=== PATIENT | female | born 1965 | race Caucasian/White ===

== ENCOUNTER → 2021-01-26 13:47 | Outpatient (CLI) | payer BC, SELFPAY ==
--- NOTE | ~2021-01-26 | MM_ITS ---
EXAMINATION: MM screening christi BI w chavez HISTORY: Screening mammogram TECHNIQUE: Craniocaudal and mediolateral oblique 3-D tomosynthesis images were obtained and synthetic 2-D images were generated. CAD analysis was submitted and interpreted. COMPARISON: 11/06/2019, 09/29/2018, 09/23/2017 bilateral digital screening mammogram examinations BREAST PARENCHYMAL COMPOSITION: There are scattered areas of fibroglandular density. FINDINGS: Stable small circumscribed benign-appearing intramammary lymph nodes are noted bilaterally. There is no evidence of suspicious mass, calcification, or architectural distortion to suggest malig estevan in either breast. There has been no suspicious interval change. IMPRESSION: 1. No mammographic evidence of malignancy. 2. Recommend routine screening mammography in one year. BI-RADS Category 2: Benign finding(s). Reviewed, dictated and finalized at location A. D ASSOCIATE
== END ==
PROVIDERS: Visit Provider Nurse Practitioner Obstetrics & Gynecology
DX: Z12.31 Encounter for screening mammogram for malignant neoplasm of breast (principal)
CPT/HCPCS: 77063; 77067

== ENCOUNTER → 2022-02-23 12:10 | Outpatient (CLI) | payer BC, SELFPAY ==
--- NOTE | ~2022-02-23 | MM_ITS ---
EXAMINATION: MM screening christi BI w chavez HISTORY: Screening TECHNIQUE: Craniocaudal and mediolateral oblique 3-D tomosynthesis images were obtained and synthetic 2-D images were generated. CAD analysis was submitted and interpreted. COMPARISON: Comparison to multiple prior studies sequentially, with oldest reviewed study dated 11/2015. BREAST PARENCHYMAL COMPOSITION: There are scattered areas of fibroglandular density. FINDINGS: There is no evidence of suspicious mass, calcification, or architectural distortion to sugg est malignancy in either breast. There has been no suspicious interval change. IMPRESSION: 1. No mammographic evidence of malignancy. 2. Recommend routine screening mammography in one year. BI-RADS Category 1: Negative Reviewed, dictated and finalized at location A.
== END ==
PROVIDERS: PCP Internal Medicine; Visit Provider Nurse Practitioner Obstetrics & Gynecology
DX: Z12.31 Encounter for screening mammogram for malignant neoplasm of breast (principal)
CPT/HCPCS: 77063; 77067

== ENCOUNTER → 2022-09-24 08:19 | Outpatient (CLI) | payer BC, SELFPAY ==
--- NOTE | ~2022-09-24 | DEXA_ITS ---
Bone Density Report Name: NASRA JAMA Age: 57 Sex: Female Ethnicity: White Date of : 1965 Indication: postmenopausal; screening for osteoporosis; Referring Provider: Yoanna, Christiano Study: Bone densitometry was performed. Exam Date: September 24, 2022 Accession number: [id number] Bone Density: Region BMD T-score Z-score Classification AP Spine (L1-L4) 0.991 -0.5 0.8 Normal Femoral Neck (Left) 0.859 0.1 1.3 Normal Total Hip (Left) 0.996 0.4 1.3 Normal Femoral Neck (Right) 0.712 -1.2 0.0 Osteopenia Total Hip (Right) 0.985 0.4 1.2 Normal Total Hip Mean 0.991 0.4 1.3 Normal World Health Organization criteria for BMD impression classify patients as: Normal (T-score at or above -1.0), Osteopenia (T-score between -1.0 and -2.5), or Osteoporosis (T-score at or below -2.5). 10-year Fracture Risk(1): Major Osteoporotic Fracture 6.8% Hip Fracture 0.4% Reported Risk Factors: [place] (), Neck BMD=0.712, BMI=28.9 (1) FRAX(R) Version 3.08. Fracture probability calculated for an untreated patient. Fracture probability may be lower if the patient has received treatment. Clinical Information Provided by Patient: Patient maximum height was 65.5 Menopause Age: 52 No regular weight bearing exercise Does not regularly consume dairy products Drinks caffeinated beverages Onset of menses at age 11 Number of children 2 Impression: The patient has low bone mass, based on the Right Femoral Neck T-score. The patient has an estimated ten-year risk of hip fracture of 0.4% and an estimated ten-year risk of major fracture of 6.8%, based on the WHO FRAX algorithm. Discussion: BONE DENSITY IS LOW AT ONE OR MORE SKELETAL SITES. This patient's lowest T-score is low at one or more skeletal sites. It meets the World Health Organization's (WHO) criteria for ?low bone mass? (T-score between -1.0 and -2.5). The patient's 10-year risk of fracture as calculated by FRAX is less than the threshold where pharmacological therapy is recommended by the National Osteoporosis Foundation (NOF). However, all treatment decisions require clinical judgment and consideration of individual patient factors, including patient preferences, comorbidities, previous drug use, risk factors not captured in the FRAX model (e.g., frailty, falls, vitamin D deficiency, increased bone turnover, interval significant decline in bone density) and possible under or overestimation of fracture risk by FRAX. The patient should follow a healthful lifestyle (good nutrition with adequate calcium and vitamin D, and appropriate weight-bearing exercise). Follow-Up: Consider repeating this study in 2 to 3 years to reassess this patient's status, or sooner if there is some new clinical indication. Reported by: JAKOB on 09/24/2022 8:46:00 AM.
== END ==
PROVIDERS: PCP Internal Medicine; Visit Provider Internal Medicine
DX: Z13.820 Encounter for screening for osteoporosis (principal); Z78.0 Asymptomatic menopausal state; M85.851 Other specified disorders of bone density and structure, right thigh
CPT/HCPCS: 77080

== ENCOUNTER → 2023-05-13 09:57 | Outpatient (CLI) | payer BC, SELFPAY ==
--- NOTE | ~2023-05-13 | MM_ITS ---
EXAMINATION: MM screening christi BI w chavez HISTORY: Screening mammogram TECHNIQUE: Craniocaudal and mediolateral oblique 3-D tomosynthesis images were obtained and synthetic 2-D images were generated. CAD analysis was submitted and interpreted. COMPARISON: February 23, 2022, January 26, 2021, November 06, 2019 bilateral screening mammogram examination s BREAST PARENCHYMAL COMPOSITION: There are scattered areas of fibroglandular density. FINDINGS: There is no evidence of suspicious mass, calcification, or architectural distortion to sugg est malignancy in either breast. There has been no suspicious interval change. IMPRESSION: 1. No mammographic evidence of malignancy. 2. Recommend routine screening mammography in one year. BI-RADS Category 1: Negative Reviewed, dictated and finalized at location A.
== END ==
PROVIDERS: PCP Nurse Practitioner Obstetrics & Gynecology; Visit Provider Internal Medicine
DX: Z12.31 Encounter for screening mammogram for malignant neoplasm of breast (principal)
CPT/HCPCS: 77063; 77067

== ENCOUNTER 2024-06-28 10:32 | Outpatient (CLI) | payer BC, SELFPAY ==
--- NOTE | ~2024-06-28 | MM_ITS ---
EXAMINATION: MM screening christi BI w chavez HISTORY: Screening TECHNIQUE: Craniocaudal and mediolateral oblique 3-D tomosynthesis images were obtained and synthetic 2-D images were generated. CAD analysis was submitted and interpreted. COMPARISON: Comparison to multiple prior studies sequentially, with oldest reviewed study dated 07/2018. BREAST PARENCHYMAL COMPOSITION: Not dense: There are scattered areas of fibroglandular density. FINDINGS: There is no evidence of suspicious mass, calcification, or architectural distortion to sugg est malignancy in either breast. There has been no suspicious interval change. IMPRESSION: 1. No mammographic evidence of malignancy. 2. Recommend routine screening mammography in one year. BI-RADS Category 1: Negative Reviewed, dictated and finalized at location B.
== END 2024-06-28 10:33 ==
PROVIDERS: PCP Internal Medicine; Visit Provider Internal Medicine
DX: Z12.31 Encounter for screening mammogram for malignant neoplasm of breast (principal)
CPT/HCPCS: 77063; 77067

== ENCOUNTER 2025-01-14 02:52 | Day surgery (SDC) | payer BC, SELFPAY ==
[2024-12-31 13:33] VITALS: BMI 27.5
--- OUTSIDE RECORDS SUMMARY | 2025-01-14 02:56 | XMS_ITS | Data Portability ---
Author Organization [facility] [place] Address [address] [place] [address] Care Team Providers Care Improvement Spec Name Role Phone MELINDA KUPop Primary Care Provider [phone] Assessment Encounter Date Assessment Date Assessment LastModified by Organization Details LastModified Time 01/01/2021 01/01/2021 Annual gynecological exam performed. Patient will come back in a year unless there are new symptoms. [email or web address] Not available 12/31/2020 14:52:50 07/08/2023 07/08/2023 Annual gynecological exam performed. Patient will come back in a year unless there are new symptoms. Not available 07/08/2023 12:11:52 10/22/2024 10/22/2024 Annual gynecological exam performed. Patient will come back in a year unless there are new symptoms. [email or web address] Not available 10/22/2024 09:03:50 Plan of Treatment Reminders Order Date Submit Date Provider Last Modified By Organization Details Last Modified Time Details Appointments None record ed. Lab None record ed. Referral None record ed. Procedures None record ed. Surgeries None record ed. Imaging None record ed. Medication Orders None record ed. Patient TargetsNo targets recorded. Patient InstructionsNo instructions recorded. Reason for Referral None Reported. Results Created Date Observation Date Name Description Value Unit Range Abnormal Flag Note LastModifiedBy Organization Detail LastModifiedTime 07/08/2007/08/2023 IMAGE GUIDE D PAP AND HPV REGAR DLESS image guided Pap, HPV regardless of Pap result SEE RESULT S BELOW CASE REPOR T: Cytol ogy Gynec ologi gwendolyn Repor t Case: [id number] Autho virgie monique Provi marleny: Rosie hilton , Jakub Neal Quach cted: 07/08 1349 CONCIERGE Order ing Locat ion: [place] Patho loghelen Recei blaise: 07/09 0319 First Scree n: Crystal Vides Speci men: Scree angélica Pap - Image d, Cervi x STATE MENT OF ADEQU ACY: Satis facto ry for evalu ation Trans forma tion zone compo nent prese nt FINAL DIAGN OSIS: Negat roddy for Intra epith elial Oksana begum or Rui barreto (NIL) . Elect yennyketty figueroa lluvia d by Crystal Vides ica on 2022 at 12:36 PM ----- ----- ----- ----- ----- ----- ----- ----- ----- ----- ----- ----- ----- ----- ----- ----- ----- ---- HPV RESUL TS: HPV mRNA E6/E7 : No HPV mRNA Detec allyssa NOTE: This high risk HPV mRNA assay detec ts fourt een high- risk HPV types (16, 18, 31, 33, 35, 39, 45, 51, 52, 56, 58, 59, 66, 68) witho ut diffe renti ation . COMME NT: This speci men was revie wed by a Cytot echno logis t and/o r Patho logis t (as indic ated in this repor t) after evalu ation using the Thinp rep Imagi ng Syste m. CLINI GWENDOLYN INFOR MATIO N: Menst rual Statu s: LMP (if appli cable ): Clini gwendolyn Histo ry/Pr eviou s Pap: Type of Neopl braeden (if appli cable ): Signi fican t Clini gwendolyn Findi ngs: Other Histo ry: Hormo brielle (if appli cable ): PAP EDUCA MILADYS L NOTE: The Pap Test is a scree angélica test with an inher ent false negat roddy rate. Liqui d-bas ed sampl ing may decre ase, but will not elimi jose enrique, false negat roddy resul ts. A negat roddy resul t does not precl ude the prese nce and/o r devel opmen t of disea se, since the prese nce of abnor mal cells in the sampl e depen ds on the locat ion of the lesio n and sampl ing techn ique. Ayan nued regul ar scree angélica is the best metho d of cance r preve ntion . If repor allyssa cytol ogic findi ng do not corre late with physi gwendolyn and/o r histo rical findi ngs, furth er inves tigat ion is recom viki d, as clini kourtney gomez nted. Not Available [facility] (Lab) [address], [place], [address], 07/11/2023 13:39:24 01/27/20 21 01/26/2021 MAMMO , scree angélica, bilat eral No observ ation record ed. layran [facility] [address], [place], [address], 02/17/2021 18:03:15 02/24/20 22 02/23/2022 MAMMO , scree angélica, bilat eral No observ ation record ed. [email or web address] [facility] [address], [place], [address], 05/19/2023 14:05:13 Result Notes None recorded. 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) (routine) w/o abn findings;P ractice ID: 0001 Not Available [facility] 0 18:55:40 Screening for malignant neoplasm of rectum Active 2017 Encounter for screening for malignant neoplasm of rectum;Pra ctice ID: 0001 Not Available [facility] 0 18:55:40 Removal of intrauter ine device Active 2018 Encounter for removal of intrauteri ne contracept roddy device;Pra ctice ID: 0001 Not Available [facility] 0 18:55:40 Specializ ed medical examinati on Active 2014 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;Randall rded Elsewhere: No Locatio n: [facility] rce: EHR Chroni c: N Practice ID: 0001 Billa ble Time: 08:30:00 AM Not Available [facility] 0 18:55:40 Urinary tract infectiou s disease 94321488 Active 2015 Urinary tract infection, site not specified; Practice ID: 0001 Not Available [facility] 0 18:55:[address] Concept Active 2017 Encntr for general adult medical exam w/o abnormal findings;P ractice ID: 0001 Not Available [facility] 0 18:55:40 Evaluatio n finding Active 2016 Hematuria, unspecifie d;Recorded Elsewhere: No Locatio n: [facility] rce: EHR Chroni c: N Practice ID: 0001 Billa ble Time: 09:00:00 AM Not Available [facility] 0 18:55:40 Adult health examinati on Active 2014 ROUTINE MEDICAL EXAM;Recor ded Elsewhere: No Locatio n: [facility] rce: EHR Chroni c: N Practice ID: 0001 Billa ble Time: 08:30:00 AM Not Available [facility] 0 18:55:40 Insertion of intrauter ine contracep tive device Active 2013 INSERTION OF IUD;Record ed Elsewhere: No Locatio n: [facility] rce: EHR Chroni c: N Practice ID: 0001 Billa ble Time: 08:30:00 AM Not Available [facility] 0 18:55:40 Screening for malignant neoplasm of cervix Active 2012 Screening for malignant neoplasms of the cervix;Rec orded Elsewhere: No Locatio n: [facility] rce: EHR Chroni c: N Practice ID: 0001 Billa ble Time: 08:15:00 AM Not Available [facility] 0 18:55:40 Joint pain 38134113 Active 2014 Arthralgia ;Recorded Elsewhere: No Locatio n: [facility] rce: EHR Chroni c: N Practice ID: 0001 Billa ble Time: 08:30:00 AM Not Available [facility] 0 18:55:40 Radiologi c finding 389068293 Active 2016 Oth abn and inconclusi ve findings on dx imaging of breast;Rec orded Elsewhere: No Locatio n: [facility] rce: EHR Chroni c: N Practice ID: 0001 Billa ble Time: 01:00:19 PM Not Available [facility] 0 18:55:41 Blood leukocyte number above reference range 344425398 Active 2015 Elevated white blood cell count, unspecifie d;Practice ID: 0001 Not Available [facility] 0 18:55:[address] Concept Active 2016 Encounter for general adult medical exam w abnormal findings;P ractice ID: 0001 Not Available [facility] 0 18:55:41 Family planning surveilla nce Active 2013 Contracept roddy surveillan ce, unspecifie d;Recorded Elsewhere: No Locatio n: [facility] rce: EHR Chroni c: N Practice ID: 0001 Billa ble Time: 08:30:00 AM Not Available [facility] 0 18:55:42 test negative 911907966 Active 2013 examinatio n or test, negative result;Rec orded Elsewhere: No Locatio n: [facility] rce: EHR Chroni c: N Practice ID: 0001 Billa ble Time: 08:30:00 AM Not Available [facility] 0 18:55:42 Elevated blood-pre ssure reading without diagnosis of hypertens ion 727184762 Active 2011 Elevated blood pressure reading without diagnosis of hypertensi on;Recorde d Elsewhere: No Locatio n: [facility] rce: EHR Chroni c: N Practice ID: 0001 Billa ble Time: 08:30:00 AM Not Available [facility] 0 18:55:42 Screening for malignant neoplasm of colon Active 2010 Special screening for malignant neoplasms, colon;Prac renetta ID: 0001 Not Available [facility] 0 18:55:43 Vitamin D deficienc y 71099534 Active 2022 [facility] 4 10:21:18 Hyperlipi demia 34472153 Active 2022 [facility] 4 10:21:19 Hyperglyc emia 40960780 Active 2022 [facility] 4 10:21:19 Problem Notes None recorded. Procedures Surgical History Date Name Laterality Status Provider Name and Address Organization Details Recorded Time 4 Date of Last Mammogram completed [facility] 10/22/2024 09:07:22 3 Date of Last Pap Smear completed [facility] 08/28/2024 16:38:23 Imaging Results Imaging Date Name Status LastModified by Organiz ation Details LastModified Time 01/26/2021 MAMMO, screening, bilateral completed [facility] [address], [place], [address], 02/17/2021 18:03:15 02/23/2022 MAMMO, screening, bilateral completed [address] [facility] [address], [place], [address], 05/19/2023 14:05:13 Procedure Notes None recorded. Medical Equipment None Reported. Allergies No known drug allergies Medications Name Sig Start Date Stop Date Status Note LastModified by Organization Details LastModified Time Mirena 21 mcg/24 hr (up to 8 years) 52 mg intrauter ine device insert 08/30 completed Prescrib ed Elsewher e: No Locat ion: [facility] odify By: travis luu DateTime : 02/26/20 04:31:53 PM Not Available Not Available Not Available aspirin 81 mg tablet,de layed release Take 1 tablet every day by oral route. active Not Available Not Available No t Available amoxicill in 500 mg tablet take 1 tablet by oral route 3 times every day for 10 days 06/08 completed Prescrib ed Elsewher e: No Locat ion: [facility] odify By: tong sood DateTime : 05/30/20 04:34:02 PM Not Available Not Available Not Available Cipro 500 mg tablet take 1 tablet by oral route every 12 hours 05/25 completed Prescrib ed Elsewher e: No Locat ion: [facility] odify By: davion gradyuntrosana DateTime : 10/08/20 16 09:00:00 AM Not Available Not Available Not Available Inspireas e Bags device 05/07 completed Prescrib ed Elsewher e: Yes Loca tion: [facility] odify By: [email or web address] Encount er DateTime : 04/11/20 12 08:30:00 AM Not Available Not Available Not Available Vitamin D2 1,250 mcg (50,000 unit) capsule take 1 capsule by oral route every week 01/01 completed Prescrib ed Elsewher e: No Locat ion: [facility] odify By: karla luu DateTime : 06/03/20 15 01:22:18 PM Not Available Not Available Not Available ezetimibe 10 mg tablet TAKE 1 TABLET BY MOUTH EVERY DAY active Not Available Not Available No t Available rosuvasta tin 40 mg tablet TAKE 1 TABLET BY MOUTH EVERY DAY active Not Available Not Available No t Available Crestor 5 mg tablet take 2 tablet by oral route every day 05/07 completed Prescrib ed Elsewher e: Yes Loca tion: [facility] odify By: davion luu DateTime : 05/11/20 16 08:30:00 AM Not Available Not Available Not Available Tri-Sprin yolanda (28) 0.18 mg(7)/0.2 15 mg(7)/0.2 5 mg(7)-35 mcg tablet take 1 tablet by oral route every day 04/30 completed Prescrib ed Terence e: No [facility] odronny By: jin sood DateTime : 04/24/20 13 08:15:00 AM Not Available Not Available Not Available Crestor 01/01 completed Not Available Not Available Not Available Vitals Date Recorded Body height Body mass index (BMI) Body weight Systolic blood pressure Diastolic blood pressure Provider Name and Address Organization Details Last Updated DateTime 07/08/2023 167.64 cm 26.8 kg/m2 29010.33 g 120 mm[Hg] 81 mm[Hg] Phuong Childers [facility] 3 12:12:25 Date Recorded Body height Body mass index (BMI) Body weight Systolic blood pressure Diastolic blood pressure Provider Name and Address Organization Details Last Updated DateTime 10/22/2024 167.64 cm 27.1 kg/m2 36270.52 g 106 mm[Hg] 74 mm[Hg] Ana Rosa Vika [facility] 4 09:06:46 Date Recorded Body height Body mass index (BMI) Body weight Systolic blood pressure Diastolic blood pressure Provider Name and Address Organization Details Last Updated DateTime 01/01/2021 167.64 cm 28.7 kg/m2 00871.44 g 133 mm[Hg] 81 mm[Hg] Francesca Carter [facility] 1 13:50:26 Social History Question Answer Notes LastModified by Organizat ion Details LastModified Time Tobacco Smoking Status Never Smoker Phuong Childers null, [facility] 07/08/2023 12:14:06 In The 14 Days Before Symptom Onset, Have You Had Close Contact With A Laboratory-confirm ed COVID-19 While That Case Was Ill? No Information n ot available 07/08/2023 In The 14 Days Before Symptom Onset, Have You Had Close Contact With A Person Who Is Under Investigation For COVID-19 While That Person Was Ill? No Information not available 07/08/2023 Have You Been To An Area Known To Be High Risk For COVID-19? No Information not available 07/08/2023 How Much Tobacco Do You Smoke? No [email or web address] Information not available 10/22/2024 Do You Use Any Illicit Or Recreational Drugs? No [email or web address] Information not available 10/22/2024 Have You Used IV Drugs? No [email or web address] Information not available 10/22/2024 Sex: Unknown Functional Status None recorded. Mental Status None recorded. Family History Relationship Description Onset Age of this Age Resolved Age Notes LastModified by Organization Details LastModified Time Father Heart disease [email or web address] Not available 2020 14:56:45 Maternal Grandmother Carcinoma in situ of breast [email or web address] Not available 2023 09:02:14 Notes:Father: Heart disease Maternal grandmother: Cancer, breast Medical History Condition Response High Cholesterol Y Asthma Y Gynecological History Statement/Question Response Abnormal Pap N Date of Last Mammogram 11/21/2023 STIs/STDs N HPV Vaccine N Current Control Method Menopause Date of Last Colonoscopy Sexually Active? Y Menses Monthly N Date of DEXA bone scan Date of Last Pap Smear 07/08/2023 Sexual Problems? N Desired Control Method Unknown LMP Unknown Obstetrics History GPAL:G 2 P 2 0 0 0 Type Value Full Term 2 Total 2 Immunizations Vaccine Type Date Status Note Provider Nam e and Address Organization Details Recorded Time Tdap 08/04/2022 completed Ana Rosa Sandy [facility] 09/10/2024 10:21:12 Past Encounters Encounter ID Performer Location Encounter Start Date Encounter Closed Date Diagnosis/Indication Diagnosis SNOMED-CT Code Diagnosis ICD10 Code Diagnosis Note [id number] Ruby Ponce [facility] [address] [address] 01/01/2021 13:39:12 01/01/2021 14:31:48 Gynecologic examination 44314295 Z01.419 Take Calcium with Vitamin D 12-1500mg daily. Do monthly self breast exams. It is advised to get annual flu shot in the fall and she could obtain at [facility] or [facility] clinic. If you haven't received the Tdap vaccine in the last 10 years you should obtain one as well. Have mammogram yearly, bone density every 2-3 years and colonoscop y every 5-10 years depending on findings and history. Engage in daily exercise of low impact aerobic exercise 45-60 minutes 4-5 times weekly. Avoid tobacco and illicit drugs as well as using moderation with alcohol intake less than 1-2 8 oz beverages daily. This lifestyle behavior pattern will lead to less health conditions and longer life span. If BMI greater than 25 weight watchers or dietary consult advised. Questions have been answered. Patient appears to understand instructio ns, but if you have any further questions call or respond to this email Neg menses since 08/2020 FSH/LH confirm menopause. No issues or concerns Mammo ordered [id number] Ruby Ponce [facility] [address] [address] 07/08/2023 11:57:43 07/08/2023 12:27:20 Gynecologic examination 93682344 Z01.419 Take Calcium with Vitamin D 12-1500mg daily. Do monthly self breast exams. It is advised to get annual flu shot in the fall and she could obtain at [facility] or [facility] clinic. If you haven't received the Tdap vaccine in the last 10 years you should obtain one as well. Have mammogram yearly, bone density every 2-3 years and colonoscop y every 5-10 years depending on findings and history. Engage in daily exercise of low impact aerobic exercise 45-60 minutes 4-5 times weekly. Avoid tobacco and illicit drugs as well as using moderation with alcohol intake less than 1-2 8 oz beverages daily. This lifestyle behavior pattern will lead to less health conditions and longer life span. If BMI greater than 25 weight watchers or dietary consult advised. Questions have been answered. Patient appears to understand instructio ns, but if you have any further questions call or respond to this emailPap/h pv opts to sendSTD Screen declinedGe netic Screen discussedC olon Screen UTD PCPDexa Screen PCPRoutine Labs UTD PCPmammo wnl 2022 [id number] BERKLEY MEREDITH NP [place] [address] [address] 10/22/2024 09:01:38 10/22/2024 09:26:48 Gynecologic examination 29000275 Z01.419 Annual gynecologi gwendolyn exam performed. Patient will come back in a year unless there are new symptoms. Suggest Calcium with Vitamin D if not eating in diet. Patient advised to get annual flu shot. Recommend yearly physicals and perform monthly breast exams. Genetic testing is available for patients with family history of cancer. Engage in safe sexual practices, use condoms. Encouraged to have daily exercise. Avoid tobacco and illicit drugs, moderation of alcohol. If BMI greater than 25 dietary consult advised. If you have any questions please call or email. mammogram- UTD 2023 - PCP orders colon cancer screening - DUE; cologuard ordered DEXA scan-UTD PCP (osteopeni a - pt takes calcium/vi t D) Pap smear- UTD (2022 WNL), will repeat per ASCCP guidelines . laboratory evaluation - PCP STI testing - declined Screening for malignant neoplasm of colon 441344005 Z12.11 Health Concerns Section Related Observation LastModified by Organization Detai ls LastModified Time None Recorded Concern Status LastModified by Organization Details LastModified Time None Recorded Advance Directives Directive None Recorded Payers Encounter Date Sequence Insurance Name Policy Number Policy [employer] Covered Member ID [employer] Member ID Guarantor Name 01/01/2021 1 [place] [id number] S Ambrosio Castellon [id number] Susan Castellon 07/08/2023 1 [place] [id number] C Ambrosio Castellon [id number] Susan Castellon 10/22/2024 1 [place] [id number] Ambrosio Castellon [id number] Susan Castellon Notes Date Note Type Note Provider Name and Address Organization Details Recorded Time 01/01/2021 text/html Annual GYNReport ed bypatient.History: no gynecologic complaints Menstrual cycle:postmenopaus e since 08/2020. Urinary symptoms:No hematuria; No incontinence Vulva:No genital lesion Vagina:Normal vaginal discharge Breast:No breast pain; No breast lump; No nipple discharge Current Contraception:Sati sfied with current contraception; Monogamous relationship; Condoms Sexual complaints:No sexual complaints; No pain during intercourse; Normal libido Menopausal Symptoms:No menopausal symptoms; Normal vaginal lubrication Psychological symptoms:No depression; No anxiety; No PMDD Preventive measures:Encourage self breast examination; Encourage regular exercise; Encourage no tobacco use; Encourage regular mammograms starting age 40; Followed with Q3 year pap smear and high risk HPV typing; Needs to schedule mammogram; Up to date on colonoscopy screening Ruby Ponce [facility] [address], [place], [address], [facility] 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.Menopaus al Symptoms:no menopausal symptoms; normal vaginal lubrication Vaginal Bleeding:history of menopause having occurred; no history of post menopausal bleeding Urinary Symptoms:no hematuria; no incontinence; no nocturia; no urinary frequency Vulva:no genital lesion; no vulvar atrophy Vagina:normal vaginal discharge; no vaginal atrophy Breast:no breast lump; no nipple discharge; no breast pain Sexual Complaints:no sexual complaints Psychological Symptoms:no depression; no anxiety Preventive Measures:encourage regular mammograms starting age 40; encourage self breast examination; encourage regular exercise; encourage no tobacco use; mammogram performed within the past year; history of recent colonoscopy Ruby Ponce [facility] [address], [place], [address], [facility] 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.Menopaus al Symptoms:no menopausal symptoms; normal vaginal lubrication Vaginal Bleeding:history of menopause having occurred; no history of post menopausal bleeding Urinary Symptoms:no hematuria; no incontinence; no nocturia; no urinary frequency Vulva:no genital lesion; no vulvar atrophy Vagina:normal vaginal discharge; no vaginal atrophy Breast:no breast lump; no nipple discharge; no breast pain Sexual Complaints:no sexual complaints Psychological Symptoms:no depression; no anxiety Preventive Measures:encourage regular mammograms starting age 40; encourage self breast examination; encourage regular exercise; encourage no tobacco use Patient presents for annual well woman exam. Patient denies concerns today. BERKLEY MEREDITH NP [address], [place], [address], [facility] 10/22/2024 09:24:08 OBGyn Episode Ob Episode Information Episode Created Date Number of Fetuses Patient Bloodtype Patient rh Status Prepregnancy Weight lbs Domestic Partner Domestic Partner Phone Father Name Soa Architect Status 12/31/19 21 1 CLOSED Fetus Data First Name Last Name Admitted to NICU Weight (g) Sex Living Outcome Pediatric Complications Fetus ID Race Codes Race Delivery Type Full Term [id number] Vaginal Delivery Jj Calculation Initial Jj Date Initial Exam Date Initial Exam Provider Initial Ultrasound Date Last Menstrual Period Date Ultra Sound Weeks Gestation 0 Eighteen To Twenty Week Jj Update Ultra Sound Date Fundal Height At Umbil Quickening Date Ultra Sound Latest Weeks Gestation Final Jj Confirmed By Final Jj Confirmed Date Final Jj Date Ultra Sound Latest Days Gestation 0 0 Menstrual History Last Menstrual Date Menses Monthly On Bcp Conception Prior Menses Frequency Hcg Plus Date Menarche Onset Age Delivery Information Delivery Date Delivery Type Labor Anesthesia Weeks Gestation Incision Type Labor Labor Length Hrs Delivered By Post Complications Tubal Sterilization Discharge Date Comments 8 Discharge Information Feeding Method Contraceptive Method Maternal HG B and HCT Levels Ob Episode Information Episode Created Date Number of Fetuses Patient Bloodtype Patient rh Status Prepregnancy Weight lbs Domestic Partner Domestic Partner Phone Father Name Soa Architect Status 12/31/19 21 1 CLOSED Fetus Data First Name Last Name Admitted to NICU Weight (g) Sex Living Outcome Pediatric Complications Fetus ID Race Codes Race Delivery Type Full Term 7820 Vaginal Delivery Jj Calculation Initial Jj Date Initial Exam Date Initial Exam Provider Initial Ultrasound Date Last Menstrual Period Date Ultra Sound Weeks Gestation 0 Eighteen To Twenty Week Jj Update Ultra Sound Date Fundal Height At Umbil Quickening Date Ultra Sound Latest Weeks Gestation Final Jj Confirmed By Final Jj Confirmed Date Final Jj Date Ultra Sound Latest Days Gestation 0 0 Menstrual History Last Menstrual Date Menses Monthly On Bcp Conception Prior Menses Frequency Hcg Plus Date Menarche Onset Age Delivery Information Delivery Date Delivery Type Labor Anesthesia Weeks Gestation Incision Type Labor Labor Length Hrs Delivered By Post Complications Tubal Sterilization Discharge Date Comments 2 Discharge Information Feeding Method Contraceptive Method Maternal HG B and HCT Levels
--- OUTSIDE RECORDS SUMMARY | 2025-01-14 02:56 | XMS_ITS | Data Portability ---
Author Organization [facility], Main Office Address [address] [place] [address] Care Team Providers Care Publications Writer Name Role Phone JORDI LENZTELMAPop Primary Care Provider YURI BRICE Stock Preparation Supervisor Assessment Encounter Date Assessment Date Assessment LastModified by Organization Details LastModified Time 02/02/2023 02/02/2023 12/28/2022: TSH/FT4/Lipid : WNL Gluc 103 CBC: WNL B12/Folate/ T D: WNL Not available 02/02/2023 11:25:48 05/11/2023 05/11/2023 12/28/2022: TSH/FT4/Lipid : WNL Gluc 103 CBC: WNL B12/Folate/ T D: WNL 04/11/2023: A1C 6.0 Gluc 113 Not available 05/11/2023 10:16:22 07/16/2024 07/16/2024 12/28/2022: TSH/FT4/Lipid : WNL Gluc 103 CBC: WNL B12/Folate/ T D: WNL 04/11/2023: A1C 6.0 Gluc 113 05/21/2024: [facility] A1C 6.2 Not available 07/16/2024 09:52:13 10/08/2024 10/08/2024 12/28/2022: TSH/FT4/Lipid : WNL Gluc 103 CBC: WNL B12/Folate/ T D: WNL 04/11/2023: A1C 6.0 Gluc 113 05/21/2024: [facility] A1C 6.2 Not available 10/08/2024 19:22:46 Plan of Treatment Reminders Order Date Submit Date Provider Last Modified By Organization Details Last Modified Time Details Appointments Any 15 2024 08:30A M Christiano mayo MD Not available Not available Not available Lab HbA1c (hemoglob in A1c), blood 2023 [facility], [address], [place], [address], 10/08/2024 12:41:36 microalbu min/creat inine, mass ratio, urine 2023 [facility], [address], [place], [address], 10/08/2024 12:41:34 vitamin D, 25-hydrox y, total, serum 2023 [facility], [address], [place], [id number], 10/08/2024 12:41:35 lipid panel, serum 2023 [facility], [address], [place], [id number], 10/08/2024 12:41:32 CMP, serum or plasma 2023 [facility], [address], [place], [id number], 10/08/2024 12:41:35 CBC w/ auto diff 2023 [facility], [address], [place], [address], 10/08/2024 12:41:36 TSH + free T4, serum 2023 [facility], [address], [place], [address], 10/08/2024 12:41:33 HbA1c (hemoglob in A1c), blood 2023 024 [facility], [address], [place], [address], 01/12/2025 04:05:16 microalbu min/creat inine, mass ratio, urine 2023 024 [facility], [address], [place], [id number], 01/12/2025 04:05:17 vitamin D, 25-hydrox y, total, serum 2023 024 [facility], [address], [place], [address], 01/12/2025 04:05:16 lipid panel, serum 2023 024 [facility], [address], [place], [address], 11/08/2024 16:51:50 CMP, serum or plasma 2023 024 [employer] [facility], [address], [place], [address], 01/12/2025 04:05:16 CBC w/ auto diff 2023 024 [facility], [address], [place], [address], 01/12/2025 04:05:16 TSH + free T4, serum 2023 024 [facility], [address], [place], [id number], 01/12/2025 04:05:16 HbA1c (hemoglob in A1c), blood 2022 023 [place] [address] [employer] [facility], [address], [place], [id number], 11/30/2023 14:30:35 microalbu min/creat inine, mass ratio, urine 2022 023 [place] [address] [facility], [address], [place], [id number], 11/30/2023 14:30:35 vitamin D, 25-hydrox y, total, serum 2022 023 [place] [address] [facility], [address], [place], [id number], 11/30/2023 14:30:35 lipid panel, serum 2022 023 [place] [address] [facility], [address], [place], [id number], 11/30/2023 14:30:34 CMP, serum or plasma 2022 023 [place] [address] [facility], [address], [place], [address], 11/30/2023 14:30:35 CBC w/ auto diff 2022 023 [place] [address] [facility], [address], [place], [address], 11/30/2023 14:30:35 TSH + free T4, serum 2022 023 [place] [address] [facility], [address], [place], [id number], 11/30/2023 14:30:35 HbA1c (hemoglob in A1c), blood 2022 023 JOAQUIN [facility], [address], [place], [address], 04/12/2023 14:48:24 microalbu min/creat inine, mass ratio, urine 2022 023 [facility], [address], [place], [address], 04/12/2023 14:48:20 vitamin D, 25-hydrox y, total, serum 2022 023 [facility], [address], [place], [address], 04/12/2023 14:48:24 lipid panel, serum 2022 023 [facility], [address], [place], [address], 04/12/2023 14:48:19 CMP, serum or plasma 2022 023 [facility], [address], [place], [address], 04/12/2023 14:48:22 CBC w/ auto diff 2022 023 [facility], [address], [place], [address], 04/12/2023 14:48:23 TSH + free T4, serum 2022 023 [facility], [address], [place], [address], 04/12/2023 14:48:21 Referral podiatris t referral - Please call patient to schedule. 2023 024 juan Meyers DPM, [address] [facility], [facility] [address], [place], [address], 01/10/2025 10:25:27 gynecolog ist referral - Please call patient to schedule. 2023 024 juan Kennedy MD, [address], [place], [address], 01/10/2025 10:25:59 podiatris t referral 2023 024 JOAQUIN Meyers DPM, [address] [facility], [address], [place], [address], 01/12/2025 04:05:17 gynecolog ist referral 2023 024 trav Kennedy MD, [address], [place], [address], 08/13/2024 11:10:39 podiatris t referral 2022 023 trav Meyers DPM, [address] [facility], [address], [place], [address], 11/30/2023 14:30:55 gynecolog ist referral 2022 023 [email or web address] Kennedy MD, [address], [place], [address], 06/16/2023 12:39:36 podiatris t referral 2022 023 [email or web address] Meyers DPM, [address] [facility], [address], [place], [address], 08/30/2023 14:59:39 cardiolog ist referral 2022 023 JOAQUIN Brice MD, [address] [facility], [address], [place], [address], 02/10/2023 22:43:18 Procedures None recorded. Surgeries None recorded. Imaging DEXA, axial skeleton 2023 024 [facility] (Imaging), [address], [place], [address], 07/17/2024 10:50:47 MAMMO, screening , digital, bilateral 2022 [email or web address] [facility] (Imaging), [address] [place], [address], 11/30/2023 14:31:10 MAMMO, screening , digital, bilateral 2022 [address] [facility] (Imaging), [address] [place], [address], 05/13/2023 12:28:57 Medication Orders None recorded. Patient TargetsNo targets recorded. Patient Instructions Encounter Date Encounter Id Patient Instructions Last Modified By Organization Details Last Modified Time 02/02/2023 [id number] diabetic eye exam* Not available 08/01/2023 17:15:24 07/16/2024 [id number] diabetic eye exam* JOAQUIN Not available 01/12/2025 04:05:26 10/08/2024 [id number] diabetic eye exam* [email or web address] Not available 10/08/2024 12:52:44 Reason for Referral Pipeline Integrity Engineer Referral for Hype rglycemia Referring Physician: Christiano Lenz Internal Medicine, Encounter Date: 02/02/2023 Stock Preparation Supervisor Referral for Sc reening for cardiovascular system disease Referring Physician: Vilma Sandoval Medicine, Encounter Date: 02/02/2023 Pipeline Integrity Engineer Referral for Hype rglycemia Referring Physician: Christiano Lenz Internal Medicine, Encounter Date: 05/11/2023 [facility] Referral for Gy necologic examination Referring Physician: Vilma Sandoval Medicine, Encounter Date: 05/11/2023 Pipeline Integrity Engineer Referral for Hype rglycemia Referring Physician: Vilma Sandoval Medicine, Encounter Date: 07/16/2024 [facility] Referral for Gy necologic examination Referring Physician: Vilma Sandoval Medicine, Encounter Date: 07/16/2024 Pipeline Integrity Engineer Referral for Hype rglycemia Please call patient to schedule. Referring Physician: Christiano Lenz, Internal Medicine, Encounter Date: 10/08/2024 [facility] Referral for Gy necologic examination Please call patient to schedule. Referring Physician: Christiano Lenz, Internal Medicine, Encounter Date: 10/08/2024 Results Created Date Observation Date Name Description Value Unit Range Abnormal Flag Note LastModifiedBy Organization Detail LastModifiedTime 04/11/2004/12/2023 LIPID PANEL (REFL ) cholesterol, total 129 mg/dL <200 normal Not Available [address], [address], 04/12/2023 14:48:19 04/11/20 23 04/12/2023 LIPID PANEL (REFL ) HDL cholesterol 70 mg/dL > or = 50 normal Not Available [address], [address], 04/12/2023 14:48:19 04/11/20 23 04/12/2023 LIPID PANEL (REFL ) triglyceride s 70 mg/dL <150 normal Not Available [address], [address], 04/12/2023 14:48:19 04/11/20 23 04/12/2023 LIPID PANEL (REFL ) LDL-choleste rol 44 mg/dL _(gwendolyn c) normal Refer ence range : <100 Kyle able range <100 mg/dL for prima ry preve ntion ; <70 mg/dL for patie nts with CHD or diabe tic patie nts with > or = 2 CHD risk facto rs. LDL-C is now calcu lated using the Patricia n-Hop kins calcu benjamin n, which is a valid ated novel coral chasete r accur acy than the Fried shayy equat ion in the estim ation of LDL-C . Patricia begum SS et al. LESLY. 2013; 310(6 9): 2061- 2068 (http ://ed ucati on.Qu Lul ferrell Sandman D&Rs. com/f aq/FA Q164) Not Available [address], [address], 04/12/2023 14:48:19 04/11/20 23 04/12/2023 LIPID PANEL (REFL ) chol/HDLC ratio 1.8 (calc ) <5.0 normal Not Available [address], [address], 04/12/2023 14:48:19 04/11/2004/12/2023 LIPID PANEL (REFL ) non HDL cholesterol 59 mg/dL _(gwendolyn c) <130 normal For patie nts with diabe amna plus 1 major ASCVD risk facto r, treat ing to a non-H DL-C goal of <100 mg/dL (LDL- C of <70 mg/dL ) is consi dered a thera peaditii c optio n. Not Available [place] [address] [facility] [place], [address], 04/12/2023 14:48:19 04/11/20 23 04/12/2023 ALBUM IN, RANDO M URINE W/CRE ATINI NE creatinine, random urine 86 mg/dL 20-275 normal Not Available [place] [address] [place], [address], 04/12/2023 14:48:20 04/11/20 23 04/12/2023 ALBUM IN, RANDO M URINE W/CRE ATINI NE albumin, urine 0.3 mg/dL see note: normal Refer ence Range : Refer ence Range Not estab lishe d Not Available [address], [address], 04/12/2023 14:48:20 04/11/20 23 04/12/2023 ALBUM IN, RANDO M URINE W/CRE ATINI NE albumin/crea tinine ratio, random urine 3 mcg/m g_cre at <30 normal The ADA defin es abnor malit ies in album in excre tion as follo ws: Album inuri a Categ ory Resul t (mcg/ mg creat inine ) Sherice l to Mildl y incre ased <30 Moder ately incre ased 30-29 9 Sever monica incre ased > OR = 300 The ADA recom mends that at least two of three speci mens colle cted withi n a 3-6 month perio d be abnor mal befor e consi leora g a patie nt to be withi n a diagn ostic categ ory. Not Available [facility] [address] [place], [address], 04/12/2023 14:48:20 04/11/20 23 04/12/2023 TSH+F REE T4 TSH 1.28 mIU/L 0.40-4 .50 normal Not Available [address] [place], [address], 04/12/2023 14:48:21 04/11/20 23 04/12/2023 TSH+F REE T4 T4, free 1.1 NG/dL 0.8-1. 8 normal Not Available [place] [address] [place], [address], 04/12/2023 14:48:21 04/11/20 23 04/12/2023 COMPR EHENS MARSHALL METAB OLIC PANEL glucose 113 mg/dL 65-99 high Fasti ng refer ence inter olga For someo ne witho ut known diabe amna, a gluco se value betwe en 100 and 125 mg/dL is consi stent with predi abete s and shoul d be confi rmed with a follo w-up test. Not Available [facility] [place] [address] [place], [address], 04/12/2023 14:48:22 04/11/20 23 04/12/2023 COMPR EHENS MARSHALL METAB OLIC PANEL urea nitrogen (BUN) 19 mg/dL 7-25 normal Not Available [facility] [place] [address] [place], [address], 04/12/2023 14:48:22 04/11/20 23 04/12/2023 COMPR EHENS MARSHALL METAB OLIC PANEL creatinine 0.89 mg/dL 0.50-1 .03 normal Not Available [address], [address], 04/12/2023 14:48:22 04/11/20 23 04/12/2023 COMPR EHENS MARSHALL METAB OLIC PANEL eGFR 75 mL/mi n/1.7 3m2 > or = 60 normal The eGFR is based on the CKD-E PI 2020 equat ion. To calcu late the new eGFR from a previ ous Creat inine or Cysta tin C resul t, go to https ://esme palacios.tonie finley.o micah/monet pickett s/ kdoqi /gfr% 5Fcal culat or Not Available [place] [address] [place], [address], 04/12/2023 14:48:22 04/11/20 23 04/12/2023 COMPR EHENS MARSHALL METAB OLIC PANEL BUN/creatini ne ratio NOT APPLIC ABLE (calc ) 6-22 Not Available [address], [address], 04/12/2023 14:48:22 04/11/20 23 04/12/2023 COMPR EHENS MARSHALL METAB OLIC PANEL sodium 137 mmol/ L 135-14 6 normal Not Available [employer] [address] [place], [address], 04/12/2023 14:48:22 04/11/20 23 04/12/2023 COMPR EHENS MARSHALL METAB OLIC PANEL potassium 4.2 mmol/ L 3.5-5. 3 normal Not Available [place] [address] [place], [address], 04/12/2023 14:48:22 04/11/20 23 04/12/2023 COMPR EHENS MARSHALL METAB OLIC PANEL chloride 103 mmol/ L 98-110 normal Not Available [address], [address], 04/12/2023 14:48:22 04/11/20 23 04/12/2023 COMPR EHENS MARSHALL METAB OLIC PANEL carbon dioxide 27 mmol/ L 20-32 normal Not Available [address], [address], 04/12/2023 14:48:22 04/11/20 23 04/12/2023 COMPR EHENS MARSHALL METAB OLIC PANEL calcium 9.3 mg/dL 8.6-10 .4 normal Not Available [address], [address], 04/12/2023 14:48:22 04/11/20 23 04/12/2023 COMPR EHENS MARSHALL METAB OLIC PANEL protein, total 7.4 g/dL 6.1-8. 1 normal Not Available [address], [address], 04/12/2023 14:48:22 04/11/20 23 04/12/2023 COMPR EHENS MARSHALL METAB OLIC PANEL albumin 4.8 g/dL 3.6-5. 1 normal Not Available [address], [address], 04/12/2023 14:48:22 04/11/20 23 04/12/2023 COMPR EHENS MARSHALL METAB OLIC PANEL globulin 2.6 g/dL_ (calc ) 1.9-3. 7 normal Not Available [address], [address], 04/12/2023 14:48:22 04/11/20 23 04/12/2023 COMPR EHENS MARSHALL METAB OLIC PANEL albumin/glob ulin ratio 1.8 (calc ) 1.0-2. 5 normal Not Available [address], [address], 04/12/2023 14:48:22 04/11/20 23 04/12/2023 COMPR EHENS MARSHALL METAB OLIC PANEL bilirubin, total 0.6 mg/dL 0.2-1. 2 normal Not Available [address], [address], 04/12/2023 14:48:22 04/11/20 23 04/12/2023 COMPR EHENS MARSHALL METAB OLIC PANEL alkaline phosphatase 61 U/L 37-153 normal Not Available [address], [address], 04/12/2023 14:48:22 04/11/20 23 04/12/2023 COMPR EHENS MARSHALL METAB OLIC PANEL AST 25 U/L 10-35 normal Not Available [address], [address], 04/12/2023 14:48:22 04/11/20 23 04/12/2023 COMPR EHENS MARSHALL METAB OLIC PANEL ALT 25 U/L 6-29 normal Not Available [address], [address], 04/12/2023 14:48:22 04/11/20 23 04/12/2023 CBC (INCL UDES DIFF/ PLT) white blood cell count 5.4 thous and/u L 3.8-10 .8 normal Not Available [address], [address], 04/12/2023 14:48:23 04/11/20 23 04/12/2023 CBC (INCL UDES DIFF/ PLT) red blood cell count 4.72 lacey on/uL 3.80-5 .10 normal Not Available [address], [address], 04/12/2023 14:48:23 04/11/20 23 04/12/2023 CBC (INCL UDES DIFF/ PLT) hemoglobin 14.2 g/dL 11.7-1 5.5 normal Not Available [address], [address], 04/12/2023 14:48:23 04/11/20 23 04/12/2023 CBC (INCL UDES DIFF/ PLT) hematocrit 43.0 % 35.0-4 5.0 normal Not Available [address], [address], 04/12/2023 14:48:23 04/11/20 23 04/12/2023 CBC (INCL UDES DIFF/ PLT) MCV 91.1 fL 80.0-1 00.0 normal Not Available [address], [address], 04/12/2023 14:48:23 04/11/20 23 04/12/2023 CBC (INCL UDES DIFF/ PLT) MCH 30.1 pg 27.0-3 3.0 normal Not Available [address], [address], 04/12/2023 14:48:23 04/11/20 23 04/12/2023 CBC (INCL UDES DIFF/ PLT) MCHC 33.0 g/dL 32.0-3 6.0 normal Not Available [address], [address], 04/12/2023 14:48:23 04/11/20 23 04/12/2023 CBC (INCL UDES DIFF/ PLT) RDW 13.0 % 11.0-1 5.0 normal Not Available [address], [address], 04/12/2023 14:48:23 04/11/20 23 04/12/2023 CBC (INCL UDES DIFF/ PLT) platelet count 235 thous and/u L 140-40 0 normal Not Available [address], [address], 04/12/2023 14:48:23 04/11/20 23 04/12/2023 CBC (INCL UDES DIFF/ PLT) MPV 10.5 fL 7.5-12 .5 normal Not Available [address], [address], 04/12/2023 14:48:23 04/11/20 23 04/12/2023 CBC (INCL UDES DIFF/ PLT) absolute neutrophils 3353 cells /uL 1500-7 800 normal Not Available [address], [address], 04/12/2023 14:48:23 04/11/20 23 04/12/2023 CBC (INCL UDES DIFF/ PLT) absolute lymphocytes 1291 cells /uL 850-39 00 normal Not Available [address], [address], 04/12/2023 14:48:23 04/11/20 23 04/12/2023 CBC (INCL UDES DIFF/ PLT) absolute monocytes 400 cells /uL 200-95 0 normal Not Available [address], [address], 04/12/2023 14:48:23 04/11/20 23 04/12/2023 CBC (INCL UDES DIFF/ PLT) absolute eosinophils 308 cells /uL 15-500 normal Not Available [address], [address], 04/12/2023 14:48:23 04/11/20 23 04/12/2023 CBC (INCL UDES DIFF/ PLT) absolute basophils 49 cells /uL 0-200 normal Not Available [address], [address], 04/12/2023 14:48:23 04/11/20 23 04/12/2023 CBC (INCL UDES DIFF/ PLT) neutrophils 62.1 % normal Not Available [address], [address], 04/12/2023 14:48:23 04/11/20 23 04/12/2023 CBC (INCL UDES DIFF/ PLT) lymphocytes 23.9 % normal Not Available [address], [address], 04/12/2023 14:48:23 04/11/20 23 04/12/2023 CBC (INCL UDES DIFF/ PLT) monocytes 7.4 % normal Not Available [address], [address], 04/12/2023 14:48:23 04/11/20 23 04/12/2023 CBC (INCL UDES DIFF/ PLT) eosinophils 5.7 % normal Not Available [address], [address], 04/12/2023 14:48:23 04/11/20 23 04/12/2023 CBC (INCL UDES DIFF/ PLT) basophils 0.9 % normal Not Available [address], [address], 04/12/2023 14:48:23 04/11/2004/12/2023 VITAM IN D,25- OH,TO NOE,I A vitamin D,25-oh,tota l,ia 51 NG/mL 30-100 normal Vitam in D Statu s 25-OH Vitam in D: Defic iency : <20 ng/mL Insuf ficie ncy: 20 - 29 ng/mL Optim al: > or = 30 ng/mL For 25-OH Vitam in D testi ng on patie nts on D2-awad pplem entat ion and patie nts for whom quant itati on of D2 and D3 fract ions is requi red, the [facility](TM ) 25-OH VIT D, (D2,D 3), LC/MS /MS is recom viki d: order code 16541 (johnathan ents >2yrs ). See Note 1 Note 1 For addit ional infor tavia erwin refer to http: //fan Burleson stDia gnost ics.c om/fa q/FAQ 199 (This link is being provi ded for infor norma koehler/ educa ramonita l purpo ses only. ) Not Available [employer] [facility] [address] [place], [address], 04/12/2023 14:48:24 04/11/2004/12/2023 HEMOG LOBIN A1C hemoglobin A1C 6.0 %_of_ total _HGB <5.7 high For someo ne witho ut known diabe amna, a hemog lobin A1c value betwe en 5.7% and 6.4% is consi stent with predi abete s and shoul d be confi rmed with a follo w-up test. For someo ne with known diabe amna, a value <7% indic ates that their diabe amna is well contr olled . A1c targe ts shoul d be indiv idual ized based on durat ion of diabe amna, age, comor bid condi tions , and other consi derat ions. This assay resul t is consi stent with an incre ased risk of diabe amna. Curre ntly, no conse nsus exist s regar ding use of hemog lobin A1c for diagn osis of diabe amna for child darcy. Not Available [facility] [address] [place], [address], 04/12/2023 14:48:24 09/24/2009/24/2022 DEXA, axial skele ton No observ ation record ed. [id number] [facility] [address], [place], [address], 01/20/2023 01:28:41 02/11/2002/10/2023 exerc ise chall enge test (PROC ) No observ ation record ed. [facility] [address], [place], [address], 02/27/2023 15:23:24 02/18/20 23 02/17/2023 US, echoc ardio gram No observ ation record ed. [facility]2 [facility] [address], [place], [address], 02/27/2023 17:24:11 03/03/20 23 03/02/2023 CT, angio gram, coron laura arter ies, w/ contr ast No observ ation record ed. [facility] [address], [place], [address], 03/11/2023 15:16:50 04/21/20 23 04/19/2023 CT, angio gram, heart , w/ contr ast No observ ation record ed. [email or web address] [facility] [address], [place], [address], 06/08/2023 12:21:22 05/13/20 23 05/13/2023 MAMMO , scree angélica, digit al, bilat eral No observ ation record ed. [email or web address] [facility] [address], [place], [address], 06/08/2023 12:21:22 06/28/20 24 06/28/2024 MAMMO , scree angélica, digit al, bilat eral No observ ation record ed. [email or web address] [facility] [address], [place], [address], 07/16/2024 15:19:50 07/17/20 DEXA, axial skele ton [facility] [address], [place] [address] Patien t Name: NASRA PATEL Access ion #: [id number] Sex: F : 1964 7 Dictat ed By: Ligia Monique Attend ing Physic kira: BALJEETMELINDA DE LA TORRE [facility] Physic kira: ASHLEE MELINDA SIMMS Exam Date: 2023 09:16 AM Exam Name: XR DEXA AXIAL/ HIP/PE LVIS/S PINE Admitt ing Diagno sis(es ): INDICA TION: 59 years old, Female ; screen ing for osteop orosis . DEXA SCAN: BONE DENSIT Y REPORT : AP SPINE (L1-L4 ) : T Score: -0.5 LEFT FEMORA L NECK : T Score: -0.5 RT FEMORA L NECK : T Score: -1.3 LEFT HIP TOTAL : T Score: 0.2 RT HIP TOTAL : T Score: 0.1 TOTAL BILAT HIP AVG: T Score: 0.0 IMPRES CARMENZA: Osteop enia right femora l neck ------ ------ ------ ------ ------ ------ ------ ------ ----- *FRAX versio n 3.08. Fractu re probab ility calcul ated for an untrea allyssa patien t. Fractu re probab ility may be lower if the patien t has receiv ed treatm ent. T-scor e: compar shandra by flaco mcmullen ion (BEAR) to a young adult popula tion, fide d for sex and ethnic ity (used for postme nopaus al women and men >50 years) and classi fied by WHO criter ia. -1.0: normal Page 1 [facility] [address] [address] [place] Name: NASRA PATEL Access ion #: [id number] Sex: F : 1964 7 Dictat ed By: Ligia Monique Attend ing Physic kira: MELINDA Goel ASHLEE SIMMS Orderi ng Physic kira: ASHLEE DE LA FUENTEFADY NICOLNickTELMA Goel Exam Date: 2023 09:16 AM Exam Name: XR DEXA AXIAL/ HIP/PE LVIS/S PINE Admitt ing Diagno sis(es ): <-1.0 to >-2.5: osteop enia -2.5: osteop orosis -2.5 plus fragil ity fractu re: severe osteop orosis Z-scor e: compar ed by SD to an age, sex, and ethnic ity popula tion (used for premen opausa l women, men <50 years, and childr en instea d of T-scor e WHO criter ia 4) <-2.0: below expect ed range/ low bone densit y for age, and a cause should be sought Electr onical ly Signed by: Ligia Monique at 2023 09:47: 40 AM Page [address] [facility] (Imaging) [address] [place], [address], 07/17/2024 10:50:47 07/17/20 24 07/17/2024 imagi ng/aman ferrell tic resul t No observ ation record ed. [facility] [address] [place], [address], 07/17/2024 10:58:03 Result Notes None recorded. Problems Name Problem SNOMED Code Status Onset Date Resolution Date Notes Provider Name and Address Organization Details Recorded Time Hyperlipidemia [id number] Active 2022 Christiano mayo MD [address], [address], [place], [place], [address], [employer] 3 11:04:39 Vitamin D deficiency 98826098 Active 2022 Christiano mayo MD [address], [address], [place], [address], [employer] 3 11:06:08 Hyperglycemia 69664508 Active 2022 Christiano mayo MD [address], [place], [address], [place] [facility] 3 11:25:44 Cough 37449595 Active 2023 Sabas Gonzalez CMA null, [place] - [facility] 4 15:18:29 Upper respiratory infection 64757600 Active 2024 Gorge Canales LPN null, [place] [facility] 5 09:11:42 Colorectal cancer detected by DNA-based stool screening 034459412 Active 2024 PABLO Katz null, [place] [facility] 5 15:38:00 Problem Notes None recorded. Procedures Surgical History Date Name Laterality Status Provider Name and Address Organization Details Recorded Time [facility] completed Not Available [facility] 01/20/2023 01:25:21 Imaging Results Imaging Date Name Status LastModified by Organization Details LastModified Time 09/24/2022 DEXA, axial skeleton completed [id number] [facility] [address], [place], [address], 01/20/2023 01:28:41 02/10/2023 exercise challenge test (PROC) completed [address] [facility] [address], [place], [address], 02/27/2023 15:23:24 02/17/2023 US, echocardiogram completed [address] [facility] [address], [place], [address], 02/27/2023 17:24:11 03/02/2023 CT, angiogram, coronary arteries, w/ contrast completed [address] [facility] [address], [place], [address], 03/11/2023 15:16:50 04/19/2023 CT, angiogram, heart, w/ contrast completed [email or web address] [place] [address] [facility] [address], [place], [address], 06/08/2023 12:21:22 05/13/2023 MAMMO, screening, digital, bilateral completed [email or web address] [facility] [address], [place], [address], 06/08/2023 12:21:22 06/28/2024 MAMMO, screening, digital, bilateral completed [email or web address] [facility] [address], [place], [address], 07/16/2024 15:19:50 07/17/2024 DEXA, axial skeleton active [facility] (Imaging) [address] [place], [address], 07/17/2024 10:50:47 07/17/2024 imaging/diagnostic result active [facility] [address] [place], [address], 07/17/2024 10:58:03 Procedure Notes None recorded. Medical Equipment None Reported. Allergies No known drug allergies Medications Name Sig Start Date Stop Date Status Note LastModified by Organization Details LastModified Time azithromycin 250 mg tablet TAKE 2 TABLETS (500 MG) BY ORAL ROUTE ONCE DAILY FOR 1 DAY THEN 1 TABLET (250 MG) BY ORAL ROUTE ONCE DAILY FOR 4 DAYS active Not Available Not Available No t Available aspirin 81 mg tablet,delayed release Take 1 tablet every day by oral route. active Not Available Not Available No t Available amoxicillin 875 mg-potassium clavulanate 125 mg tablet Take 1 tablet every 12 hours by oral route. active Not Available Not Available No t Available ezetimibe 10 mg tablet TAKE 1 TABLET BY MOUTH EVERY DAY active Not Available Not Available No t Available rosuvastatin 40 mg tablet TAKE 1 TABLET BY MOUTH EVERY DAY active Not Available Not Available No t Available Vitamin D3 active Not Available Not Av ailable Not Available multivitamin 2021 active Not Available Not Available Not Avai lable Vitals Date Recorded Body mass index (BMI) Body height Heart rate Body temperature Body weight Systolic blood pressure Diastolic blood pressure Provider Name and Address Organization Details Last Updated DateTime 2 28.1 kg/m2 167.64 cm 84 /min 97.5 [degF] 38528.0 7 g 110 mm[Hg] 62 mm[Hg] Not Available [facility] 3 01:26:07 Date Recorded Body height Body mass index (BMI) Body weight Heart rate Oxygen saturation Oxygen saturation in Arterial blood by Pulse oximetry Systolic blood pressure Diastolic blood pressure Provider Name and Address Organization Details Last Updated DateTime 3 167.64 cm 28.7 kg/m2 63687.4 4 g 66 /min 96 % 96 % 122 mm[Hg] 74 mm[Hg] Keiry Aj MA [employer] 3 11:23:00 Date Recorded Body height Body mass index (BMI) Body weight Body temperature Heart rate Systolic blood pressure Diastolic blood pressure Provider Name and Address Organization Details Last Updated DateTime 3 167.64 cm 27.1 kg/m2 18807.5 2 g 97.5 [degF] 72 /min 110 mm[Hg] 66 mm[Hg] PABLO Katz [employer] 3 09:52:04 Date Recorded Body height Body mass index (BMI) Body weight Body temperature Heart rate Systolic blood pressure Diastolic blood pressure Provider Name and Address Organization Details Last Updated DateTime 4 167.64 cm 27.9 kg/m2 02165.4 8 g 97.4 [degF] 72 /min 118 mm[Hg] 60 mm[Hg] PABLO Katz [employer] 4 09:30:37 Date Recorded Body height Body mass index (BMI) Body weight Body temperature Heart rate Systolic blood pressure Diastolic blood pressure Provider Name and Address Organization Details Last Updated DateTime 4 167.64 cm 27.9 kg/m2 73761.4 8 g 97.6 [degF] 78 /min 124 mm[Hg] 62 mm[Hg] PABLO Katz [employer] 4 12:27:36 Social History Question Answer Notes LastModified by Organizat ion Details LastModified Time Tobacco Smoking Status Never Smoker Not Available [facility] 01/20/2023 01:24:40 Do You Have An Advance Directive? No [id number] Information not available 01/20/2023 What Is Your Level Of Alcohol Consumption? Occasional MIGRATION.00448 [id number] Information not available 01/20/2023 What Is Your Level Of Caffeine Consumption? Moderate MIGRATION.52426 77134 Information not available 01/20/2023 In The 14 Days Before Symptom Onset, Have You Had Close Contact With A Laboratory-confi rmed COVID-19 While That Case Was Ill? No MIGRATION.31267 63347 Information not available 01/20/2023 In The 14 Days Before Symptom Onset, Have You Had Close Contact With A Person Who Is Under Investigation For COVID-19 While That Person Was Ill? No MIGRATION.27350 87478 Information not available 01/20/2023 What Type Of Diet Are You Following? REGULAR MIGRATION.03364 43745 Information not available 01/20/2023 What Is The Highest Grade Or Level Of School You Have Completed Or The Highest Degree You Have Received? 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 No MIGRATION.44493 55201 Information not available 01/20/2023 What Is The Fluoride Status Of Your Home? Unknown MIGRATION.46149 63840 Information not available 01/20/2023 Are There Any Guns Present In Your Home? No MIGRATION.62148 19700 Information not available 01/20/2023 Do You Use Insect Repellent Routinely? Yes MIGRATION.43583 93049 Information not available 01/20/2023 Where Do You Live? [facility] MIGRATION.99604 01975 Information not available 01/20/2023 Do You Have A Medical Power Of Process Development Engineer? No MIGRATION.02940 29529 Information not available 01/20/2023 What Was The Date Of Your Most Recent Tobacco Screening? 10/08/2024 Information not available 10/08/2024 Do You Have Any Pets? Yes MIGRATION.54715 77133 Information not available 01/20/2023 What Is Your Relationship Status? MIGRATION.07718 44734 Information not available 01/20/2023 Do You Use Your Seat Belt Or Car Seat Routinely? Yes MIGRATION.90405 23964 Information not available 01/20/2023 Do You Have Smoke And Carbon Monoxide Detectors In Your Home? Yes MIGRATION.07105 30426 Information not available 01/20/2023 Are You Passively Exposed To Smoke? Yes MIGRATION.83627 75835 Information not available 01/20/2023 Are There Any Smokers In Your House? Yes MIGRATION.89082 10347 Information not available 01/20/2023 Do You Feel Stressed (tense, Restless, Nervous, Or Anxious, Or Unable To Sleep At Night)? [id number] MIGRATION.11927 82804 Information not available 01/20/2023 Do You Use Any Illicit Or Recreational Drugs? No MIGRATION.35499 18211 Information not available 01/20/2023 Do You Use Sunscreen Routinely? Yes MIGRATION.84772 53806 Information not available 01/20/2023 Has Tobacco Cessation Counseling Been Provided? No N/a MIGRATION.57048 39937 Information not available 01/20/2023 Have You Recently Traveled Abroad? No MIGRATION.04700 46611 Information not available 01/20/2023 Do You Have Any Dietary Restrictions? No MIGRATION.90237 73104 Information not available 01/20/2023 Do You Or Have You Ever Used Any Other Forms Of Tobacco Or Nicotine? No MIGRATION.29438 68285 Information not available 01/20/2023 Sex: Female Functional Status Question Answer Note LastModified by Organizat ion Details LastModified Time What is your exercise level? None [id number].[id number] Information not available 01/20/2023 Mental Status None recorded. Family History Relationship Description Onset Age of this Age Resolved Age Notes LastModified by Organization Details LastModified Time Father Heart disease [id number] Not available 01/20/2023 01:25:26 Father Myocardial infarction CABG MIGRATION.490 [id number] Not available 01/20/2023 01:25:26 Maternal Grandmother Malignant tumor of breast MIGRATION.333 [id number] Not available 01/20/2023 01:25:26 Medical History Condition Response BLINDNESS N NERVE DISEASE N RHEUMATIC FEVER N BLADDER PROBLEMS N KIDNEY STONES N MRSA N OTHER # 1 N POLIO N LUNG DISEASE/DISORDER N HISTORY OF DRUG ABUSE N RADIATION / CHEMOTHERAPY N COPD N Other # 2 N BLOOD DISEASES N EAR OR HEARING PROBLEMS N MUMPS N SHINGLES N BOWEL PROBLEMS N DEPRESSION (INCLUDING POST ) N STROKE/TIA N ULCERS N BENIGN PROSTATIC HYPERPLASIA N MEASLES N HYPOTENSION N MYOCARDIAL INFARCTION N OBESITY N GERD/NAUSEA N ANEURYSM N URINARY/BLADDER/KIDNEY PROBLEMS N CORONARY ARTERY DISEASE (CAD) N ADDICTION CONCERNS N Impotence N ENDOMETRIOSIS N USE OF BLOOD THINNERS N SKIN PROBLEMS N GASTROINTESTINAL DISORDER N PERIPHERAL VASCULAR DISEASE N MUSCLE,JOINT OR BONE PROBLEMS N GASTROINTESTINAL BLEEDING N BLOOD CLOTS N ASTHMA Y CATARACTS N ERECTILE DYSFUNCTION N VARICOSITIES N GI PROBLEMS N Low Testosterone N INFERTILITY N AIDS/HIV N CHEMOTHERAPY / RADIATION N LIVER DISEASE N MALE HYPOGONADISM N HYPERTENSION N Deficiency N TOURETTE'S N ANXIETY DISORDER N BLOOD TRANSFUSION N ANEMIA/BLOOD DISORDER N CHRONIC EAR INFECTIONS N BRONCHITIS N TUBERCULOSIS N GLAUCOMA N FOOT PROBLEM N DIVERTICULITIS N SLEEP APNEA N CHICKENPOX N INFECTIOUS DISEASE N PROSTATE N HEART ARRHYTHMIA N INSOMNIA N HIGH CHOLESTEROL / HYPERLIPIDEMIA Y EYE PROBLEMS N HYPERTHYROIDISM N EDEMA N CHRONIC PAIN SYNDROME N HYPOTHYROIDISM N CAROTID BLOCKAGE N CONSTIPATION N BACK / NECK PROBLEMS N ATHEROSCLEROSIS N BREAST PROBLEMS N DIALYSIS N ECZEMA N OSTEOPOROSIS N ARTHRITIS N APPENDICITIS N DIABETES, TYPE N BAD TEETH N ENT N HEARTBURN / REFLUX N AUTISM SPECTRUM DISORDER (ASD) N HEPATITIS / LIVER DISEASE N GOUT N SLEEP DISORDER N ALZHEIMER'S DISEASE N Brain Problems N DEMENTIA N HERPES N SEIZURES/EPILEPSY N HEADACHES/MIGRAINES N VASCULAR DISEASE N PACEMAKER N Blood Disorder N DIZZINESS N HEART DISEASE/HEART PROBLEMS N KIDNEY DISEASE N MULTIPLE SCLEROSIS N CANCER: SPECIFY N CARDIAC ARRHYTHMIA N ATRIAL FIBRILLATION N Gall Stones N PULMONARY EMBOLISM N AUTOIMMUNE DISEASE N Gynecological HistoryNo gynecological history recorded. Obstetrics History GPAL:G 0 P 0 0 0 0 Immunizations Vaccine Type Date Status Note Provider Nam e and Address Organization Details Recorded Time Tdap 08/04/2022 completed Not Available [employer] 01/20/2023 01:28:20 Influenza, split virus, trivalent, PF 10/08/2024 completed Christiano Lenz MD [address] [address], [place], [address], [facility] [employer] [facility] 10/08/2024 19:22:37 Past Encounters Encounter ID Performer Location Encounter Start Date Encounter Closed Date Diagnosis/Indication Diagnosis SNOMED-CT Code Diagnosis ICD10 Code Diagnosis Note [id number] [facility] Internal Med [place] [address] [facility] [place] [address] 08/04/2022 00:00:00 08/04/2022 15:24:09 [id number] Christiano goel MD [facility] Internal [facility] [place] [address] [place] [address] 02/02/2023 10:59:57 02/02/2023 11:46:40 Screening - NAD [id number] Z13.9 C-scope: Cologuard : Neg Mammogram: Get this PAP: Saw Dr Zavala this year was told no more PAP needed, no complaints DEXA: 09/24/2022 : Low bone mass, do ca and vit d Get yeary flu shotGet tdap, shingrix and COVID 19 vaccines and its boosters RTC in 3 months, do labsER if worse, she did verbalize her understand ing of the above Screening for malignant neoplasm of breast 620273441 Z12.39 Hyperlipidemia 87098973 E78.5 On rosuvastat in 40mg daily Vitamin D deficiency 347 38629 E55.9 Hyperglycemia 06535075 R 73.9 Get labs Screening for cardiovascular system disease 362407292 Z13.6 [id number] Christiano goel MD [facility] Internal [facility] [place] [address] [place] [address] 05/11/2023 09:46:04 05/11/2023 10:18:46 Screening - NAD [id number] Z13.9 C-scope: Cologuard : Neg Mammogram: Get this PAP: Saw Dr Zavala this year was told no more PAP needed, no complaints DEXA: 09/24/2022 : Low bone mass, do ca and vit d Get yeary flu shotGet tdap, shingrix and COVID 19 vaccines and its boosters RTC in 6 months, do labsER if worse, she did verbalize her understand ing of the above Screening for malignant neoplasm of breast 386187263 Z12.39 Hyperlipidemia 13321669 E78.5 On ASAOn rosuvastat in 40mg daily Vitamin D deficiency 347 55016 E55.9 Hyperglycemia 38668571 R 73.9 Declines any meds, more diet and exercise is neededGet labsDigauri see her eye MD and f/u in year Screening for cardiovascular system disease 780562501 Z13.6 Stress test 02/10/2023 ECHO 02/17/2023 CT Ca 03/02/2023 CT angio 04/19/2023 Dr Brice 03/18/2023 Gynecologi c examination 80879199 Z01.336 [id number] Christiano goel MD [facility] Internal Med [place] [address] [place] [address] 07/16/2024 09:18:34 07/16/2024 09:53:45 Screening - NAD [id number] Z13.9 C-scope: Cologuard : Neg Mammogram: 06/28/2024 : Neg PAP: Saw Dr Zavala this year was told no more PAP needed, no complaints DEXA: 09/24/2022 : Low bone mass, do ca and vit d Get yeary flu shotGet tdap, shingrix and COVID 19 vaccines and its boostersCa n do RSV vaccine RTC in 4 months, do labsER if worse, she did verbalize her understand ing of the above Hyperlipidemia 11158092 E78.5 On ASAOn rosuvastat in 40mg dailyOn zetiaGet labs Vitamin D deficiency 347 42593 E55.9 Hyperglycemia 50997601 R 73.9 Declines any meds, more diet and exercise is needed 07/16/2024 , states that she has not dieted this summerGet labsDigauri see her eye MD and f/u in year Screening for cardiovascular system disease 220883645 Z13.6 Stress test 02/10/2023 ECHO 02/17/2023 CT Ca 03/02/2023 CT angio 04/19/2023 Dr Brice [facility] Gynecologi c examination 64026996 Z01.419 Screening for osteoporosis 255633185 Z13.985 [id number] Christiano goel MD [facility] Primary Care [place] [address] [place] [address] 10/08/2024 11:33:37 10/08/2024 12:53:01 Screening - NAD [id number] Z13.9 C-scope: Cologuard : Neg Mammogram: 06/28/2024 : Neg PAP: Saw Dr Zaavla this year was told no more PAP needed, no complaints DEXA: 09/24/2022 : Low bone mass, do ca and vit dDEXA: 07/17/2024 : Osteopenia Get yeary flu shotGet tdap, shingrix and COVID 19 vaccines and its boostersCa n do RSV vaccine RTC in 4 months, do labsER if worse, she did verbalize her understand ing of the above Hyperlipidemia 29331291 E78.5 On ASAOn rosuvastat in 40mg dailyOn zetiaGet labs Vitamin D deficiency 347 93387 E55.9 Hyperglycemia 57425093 R 73.9 Declines any meds, more diet and exercise is needed 07/16/2024 , states that she has not dieted this summerGet labsDid see her eye MD and f/u in year Screening for cardiovascular system disease 626071825 Z13.6 Stress test 02/10/2023 ECHO 02/17/2023 CT Ca 03/02/2023 CT angio 04/19/2023 Dr Brice [facility] Gynecologi c examination 95802543 Z01.419 Administra tion of influenza vaccine 08740463 Z23 Health Concerns Section Related Observation LastModified by Organization Detai ls LastModified Time None Recorded Concern Status LastModified by Organization Details LastModified Time None Recorded Advance Directives Directive N: Payers Encounter Date Sequence Insurance Name Policy Number Policy Oh[employer] Covered Member ID Ohara Member ID Guarantor Name 02/02/2023 1 [place] [id number] Zoraida Castellon [id number] [address]ande 05/11/2023 1 [place] [id number] C Ambrosio Castellon [id number] [address] Cande 07/16/2024 1 [place] [id number] Nasrapop Castellon [id number] Nasrapop Castellon 10/08/2024 1 [place] [id number] Nasra Cande [id number] Nasra Castellon Notes Date Note Type Note Provider Name and Address Organization Details Recorded Time 02/02/2023 text/html OV 08/04/2022:He re to establish carePast Hx:HLDAsthma, not now not on any medsReviewed social family and surgical historyDoes well, here to discuss above and get labs OV 02/02/2023:Here for her f/u apt, does well, did do the labs Christiano Lenz MD [address], [address], [place], [address], [employer] 02/02/2023 13:27:42 05/11/2023 text/html OV 08/04/2022:He re to establish carePast Hx:HLDAsthma, not now not on any medsReviewed social family and surgical historyDoes well, here to discuss above and get labs OV 02/02/2023:Here for her f/u apt, does well, did do the labs OV 05/11/2023: Here for her f/u apt, she is doing very well, did do the labs Christiano Lenz MD [address], [address], [place], [address], [employer] 05/11/2023 10:17:37 07/16/2024 text/html OV 08/04/2022:He re to establish carePast Hx:HLDAsthma, not now not on any medsReviewed social family and surgical historyDoes well, here to discuss above and get labs OV 02/02/2023:Here for her f/u apt, does well, did do the labs OV 05/11/2023: Here for her f/u apt, she is doing very well, did do the labs OV 07/16/2024: Here for her routine apt, she feels well today, she did do the labs with [facility] Christiano Lenz MD [address], [address], [place], [address], [employer] 07/16/2024 09:52:50 10/08/2024 text/html OV 08/04/2022:[facility] Hx:HLKamille, not now not on any medsReviewed social family and surgical historyDoes well, here to discuss above and get labs OV 02/02/2023:Here for her f/u apt, does well, did do the labs OV 05/11/2023: Here for her f/u apt, she is doing very well, did do the labs OV 07/16/2024: Here for her routine apt, she feels well today, she did do the labs with [facility] OV 10/08/2024: Here for her routine apt, she is doing well today Christiano Lenz MD [address] [place] [address], [facility] [address], [place], [address], [place] [facility] 10/08/2024 19:23:00 OBGyn Episode No OBEpisode recorded.
[2025-01-14 11:47] VITALS: BP 109/73; PULSE 94; RESP 16; TEMP 36.6; O2SAT 98; BMI 26.6
--- NOTE | 2025-01-14 11:50 | WPDANESEPPF ---
Anes - Initial Pre Proc Eval Procedure: Operation Date: 01/14/25 12:30 Proposed Procedures p Screening Colonoscopy - Jose Zhu MD Date/Time: 01/14/25 11:50 Surgeon: Jose Zhu MD Pre Op Diagnosis: Screening Patient Data Age: 59 Gender: F Height: 1.63 m Weight: 70.6 kg Last Vital Signs Temp 97.8 F 01/14/25 11:47 Pulse 94 01/14/25 11:47 Resp 16 01/14/25 11:47 BP 109/73 01/14/25 11:47 Pulse Ox 98 01/14/25 11:47 O2 Del Method Room Air 01/14/25 11:47 Allergies Allergy/AdvReac Type Severity Reaction Status Date / Time No Known Allergies Allergy Verified 01/14/25 11:46 Home Medications ?Medication ?Instructions ?Recorded ?Confirmed ?Type ezetimibe 10 mg tablet 10 mg PO DAILY 12/31/24 01/14/25 History rosuvastatin 40 mg tablet 40 mg PO DAILY 12/31/24 01/14/25 History Patient hx anesthesia problems: none Family hx anesthesia problems: none Results Review: All pre-operative results and documents have been reviewed as part of the pre-operative evaluation. [facility] Social History Social History Smoking status: Never smoker Alcohol intake: current Drinks per week: 7 Substance use type: does not use Living arrangements: with family Additional living arrangements comments: with sp Anes - Eval Final PreProcedure Day of Procedure 01/14/25 11:50 Patient weight: normal Lungs: normal air movement Airway: Mallampati scale class II Neurological: alert and oriented Last oral intake: >/= 8 hours ASA classification: II Emergent: no Anesthetic plan: proceed Anesthesia type and monitoring: general GIVS and standard monitoring Results Review: All pre-operative results and documents have been reviewed as part of the pre-operative evaluation. Hyperlipidemia. Informed Consent: The patient's anesthetic plan and its attendant risks and benefits were discussed with the patient/family/POA. Questions were solicited and answers provided to the satisfaction of the patient/family/POA.
[2025-01-14] MEDS: LACTATED RINGERS 1,000 ML 150 ML IV CONT (12:00)
--- NOTE | 2025-01-14 13:03 | PM.HPGS ---
History of Present Illness History of Present Illness Consent: Risks, benefits, and alternatives have been discussed and questions answered. Patient agrees to proceed with procedure. Chief complaint: Screening Narrative: Susan Lopez is a 59 year old female here for first colonoscopy, had + cologuard Review of Systems Review of Systems: All systems reviewed & are unremarkable except as noted in HPI and below PMFSH Past Medical History Medical History (Updated 01/14/25 @ 13:03 by Jose Zhu MD) Positive colorectal cancer screening using Cologuard test Social History Social History Smoking status: Never smoker Alcohol intake: current Drinks per week: 7 Substance use type: does not use Living arrangements: with family Additional living arrangements comments: with sp Meds Home Medications and Allergies Home Medications ?Medication ?Instructions ?Recorded ?Confirmed ?Type ezetimibe 10 mg tablet 10 mg PO DAILY 12/31/24 01/14/25 History rosuvastatin 40 mg tablet 40 mg PO DAILY 12/31/24 01/14/25 History Allergies Allergy/AdvReac Type Severity Reaction Status Date / Time No Known Allergies Allergy Verified 01/14/25 11:46 Vital Signs Vital Signs - 24 hr 01/14/25 11:47 Temperature 97.8 F Pulse Rate 94 Respiratory Rate 16 Blood Pressure 109/73 Pulse Oximetry 98 Oxygen Delivery Room Air Exam Const: General: comfortable and no acute distress HENMT: Face/Nose/Sinus: Normal nares present Eyes: General: appearance normal, both eyes and all related structures Neck: Neck: no JVD Resp: Auscultation: clear to auscultation bilaterally Cardio: Rate: regular rate Rhythm: regular rhythm GI: Inspection: non-distended GI Palp: Yes Soft to palpation Skin: General skin exam: normal color Neuro: General: gait normal Speech: normal speech Extrem: General: normal to inspection Psych: Mental Status: mental status grossly normal Assessment and Plan Assessment and plan (1) Positive colorectal cancer screening using Cologuard test: Code(s): R19.5 - Other fecal abnormalities Status: Acute Assessment and Plan: colonoscopy
[2025-01-14 13:15] VITALS: BP 79/46; PULSE 92; RESP 18; O2SAT 95
[2025-01-14 13:25] VITALS: BP 81/49; PULSE 84; RESP 18; O2SAT 95
[2025-01-14 13:35] VITALS: BP 100/69; PULSE 84; RESP 18; O2SAT 99
== END 2025-01-14 13:46 | disposition home or self-care (01) ==
PROVIDERS: PCP Internal Medicine; Visit Provider Internal Medicine Gastroenterology
PROC: 0DJD8ZZ Inspection of Lower Intestinal Tract, Via Natural or Artificial Opening Endoscopic (ICD-10-PCS; CPT 45378; principal; 2025-01-14 12:30)
DX: D12.4 Benign neoplasm of descending colon (principal); K64.8 Other hemorrhoids; K57.30 Diverticulosis of large intestine without perforation or abscess without bleeding
CPT/HCPCS: 45385; 88305; J2704; J7120